=== PATIENT | male | born 1975 | race Caucasian/White ===

== ENCOUNTER 2024-11-13 03:03 | Inpatient (IN) | payer MEDICAID ==
[~2024-11-13] VITALS: Ht 185.4 cm; Wt 103.0 kg
[~2024-11-13 03:03] MED LIST: PANT40TA2 PO
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
[2024-11-13 03:56] LABS: Hematocrit 42.8 % (41.0-53.0); Hemoglobin 14.7 g/dL (13.5-17.5); Mean Corpuscular Hgb Conc. 34.4 g/dL (32.0-36.0); Mean Corpuscular Volume 84.4 fL (80.0-100.0); Platelet Count (auto) 312 10^3/uL (140-450); Red Blood Cells 5.07 10^6/uL (4.5-5.90); Red Cell Distribution Width 13.4 % (11.8-14.3); White Blood Cell 16.1 10^3/uL (4.4-10.8)
[2024-11-13 04:00] VITALS: PULSE 95; RESP 14; O2SAT 97
[2024-11-13 04:04] LABS: Basophils % (manual) 0 (0.0-2.0); Blast Cells 0; Eosinophils % (manual) 0 (0-7); Myelocytes % 0; Promyelocytes % 0; Reactive Lymphocytes 0
[2024-11-13] MEDS: KETOROLAC TROMETH 30 MG/ML 1ML VIAL IV ONE (04:07)
[2024-11-13 04:14] LABS: Alanine Aminotransferase 22 U/L (7-40); Albumin 4.1 g/dL (3.2-4.8); Alkaline Phosphatase 135 U/L (46-116); Anion Gap 8 (5-15); Aspartate Aminotransferase 16 U/L (13-40); BUN/Creatinine Ratio 22.8 (10.0-20.0); Bilirubin, Total 0.7 mg/dL (0.2-1.0); Blood Urea Nitrogen 23 mg/dL (9-23); Calcium 9.7 mg/dL (8.7-10.4); Carbon Dioxide 19 mmol/L (20-31); Chloride 108 mmol/L (98-107); Glucose 354 mg/dL (74-106); Potassium 3.8 mmol/L (3.5-5.1); Sodium 135 mmol/L (136-145); Total Protein 7.4 g/dL (5.7-8.2)
[2024-11-13 04:15] LABS: Lactic Acid w/Reflex 2.3 mmol/L (0.4-2.0)
[2024-11-13 04:23] LABS: Lipase 33 U/L (12-53)
[2024-11-13] MEDS: IOHEXOL 350 MG/ML 100ML IJ ONE (04:40)
[2024-11-13] MEDS: SODIUM CHLORIDE 0.9% 1,000 ML IV ONE (04:42)
--- NOTE | 2024-11-13 05:12 | DVH ---
EXAM: CT Abdomen and Pelvis With Intravenous Contrast CLINICAL INDICATION: Abdominal pain, constipation, difficulty urinating TECHNIQUE: Axial computed tomography images of the abdomen and pelvis with intravenous contrast. is CT exam was performed using one or more of the following dose reduction techniques: automated exp osure control, adjustment of the mA and/or kV according to patient size, and/or use of iterative sarmad nstruction technique. CONTRAST: RADIATION DOSE: CTDIvol = 17.78 mGy, DLP = 1069.5 mGy-cm COMPARISON: None FINDINGS: ARTIFACTS: Motion artifact. LUNG BASES: Unremarkable. No mass. No consolidation. ABDOMEN: LIVER: Hepatomegaly with fatty infiltration. GALLBLADDER AND BILE DUCTS: Unremarkable. No calcified stones. No ductal dilation. PANCREAS: Unremarkable. No mass. No ductal dilation. SPLEEN: Unremarkable. No splenomegaly. ADRENALS: Unremarkable. No mass. KIDNEYS AND URETERS: Unremarkable. No solid mass. No hydronephrosis. STOMACH AND BOWEL: Fecal retention in the colon consistent with constipation. No obstruction. No mucosal thickening. PELVIS: APPENDIX: No findings to suggest acute appendicitis. BLADDER: Unremarkable. No mass. REPRODUCTIVE: The prostate gland is enlarged measuring 6.7 cm in maximum dimension. ABDOMEN and PELVIS: INTRAPERITONEAL SPACE: Unremarkable. No free air. No significant fluid collection. BONES/JOINTS: No acute fracture. No dislocation. SOFT TISSUES: Left inguinal hernia. VASCULATURE: Indwelling IVC filter. No abdominal aortic aneurysm. LYMPH NODES: Unremarkable. No enlarged lymph nodes. OTHER FINDINGS: . . IMPRESSION: 1. The prostate gland is enlarged. Correlation with PSA values may be helpful if not previously per formed. 2. Hepatomegaly with fatty infiltration. 3. Fecal retention in the colon consistent with constipation. 4. Left inguinal hernia.
[2024-11-13 05:21] LABS: Band Neutrophils % (manual) 5; Lymphocytes % (manual) 8 (10.0-50.0); Metamyelocytes % 2; Monocytes % (manual) 2 (0-12)
[2024-11-13] MEDS ORDERED: DOCU-94 PO (05:24)
[2024-11-13] MEDS ORDERED: POLY335015 PO (05:24)
[2024-11-13 05:37] LABS: Platelet Estimate Adequate
[2024-11-13] MEDS: metroNIDAZOLE 500MG/100ML 100 ML IV ONE (06:36)
--- NOTE | 2024-11-13 07:29 | DVH ---
EXAM: XR Chest, 1 View CLINICAL INDICATION: r/o infection TECHNIQUE: Frontal view of the chest. COMPARISON: XY CHEST PORTABLE on DOS: 11/10/23, XY CHEST XRAY 1 VIEW on DOS: 11/09/23 FINDINGS: LUNGS AND PLEURAL SPACES: Pulmonary venous congestion. No consolidation. No pneumothorax. HEART: Unremarkable. No cardiomegaly. MEDIASTINUM: Unremarkable. Normal mediastinal contour. BONES/JOINTS: Unremarkable. No acute fracture. OTHER FINDINGS: . IMPRESSION: Pulmonary venous congestion.
[2024-11-13] MEDS: levoFLOXacin 500MG 100 ML IV ONE (09:04)
[2024-11-13] MEDS ORDERED: DEXTROSE (50%) 50ML SYRG IV PRN (10:45)
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
[2024-11-13] MEDS: POLYETHYLENE GLYCOL 17 GM PWDR PO SCH (11:20)
[2024-11-13] MEDS: ACCU-CHEK COMFORT CURVE STRIP VI SCH (11:30)
[2024-11-13 11:43] LABS: Erythrocyte Sedimentation Rate 55 mm/hr (0-20)
[2024-11-13 11:50] LABS: Urine Bacteria FEW /hpf (None Seen); Urine Blood TRACE /uL (Negative); Urine Clarity Turbid (Clear); Urine Color Light-Orange (Yellow); Urine Mucus FEW (None Seen); Urine Protein, UAD 1+ (Negative); Urine Squamous Epithelial Cell FEW /hpf (<5); Urine Urobilinogen 3 mg/dL (Negative); Urine WBC 161 /HPF (0-3); Urine pH 6.5 (5.0-9.0)
[2024-11-13 11:51] LABS: Urine Specific Gravity > 1.050 (1.001-1.035)
[2024-11-13] MEDS: InsuLIN REG 1unit/0.01ml Soln (100units/ml) SC SCH (12:30)
[2024-11-13 13:53] VITALS: PULSE 127; RESP 17; O2SAT 95
[2024-11-13] MEDS: metroNIDAZOLE 500MG/100ML 100 ML IV SCH (14:07)
[2024-11-13] MEDS: ACETAMINOPHEN 325 MG TAB PO PRN (15:20)
[2024-11-13] MEDS: FUROSEMIDE 40 MG/4 ML VIAL IV SCH (17:08)
[2024-11-13] MEDS: PANTOPRAZOLE 40 MG/10 ML VIAL INJ IV SCH (17:09)
[2024-11-13] MEDS: HYDROcodone-ACET 5/325MG TAB PO ONE (22:40)
[2024-11-13] MEDS: DOCUSATE SOD 100 MG CAP PO SCH (22:41)
[2024-11-13] MEDS: SENNA 8.6 MG TAB PO SCH (22:54)
[2024-11-14] VITALS (8 sets, daily range): BP systolic 87–117; BP diastolic 51–75; PULSE 83–103; RESP 16–21; TEMP 97.6–99.8; O2SAT 91–96
[2024-11-14] MEDS: HYDROcodone-ACET 5/325MG TAB PO PRN (05:40)
[2024-11-14 07:02] LABS: Basophils # (auto) 0.1 10 ^3/uL (0-0.2); Basophils % (auto) 0.6 % (0.0-2.0); Eosinophils # (auto) 0.1 10 ^3/uL (0-0.8); Eosinophils % (auto) 1.1 % (0.0-7.0); Hematocrit 40.2 % (41.0-53.0); Hemoglobin 13.9 g/dL (13.5-17.5); Lymphocytes % (auto) 8.9 % (10.0-50.0); Mean Corpuscular Hgb Conc. 34.5 g/dL (32.0-36.0); Monocytes # (auto) 0.8 10 ^3/uL (0-1.3); Monocytes % (auto) 7.5 % (0.0-12.0); Neutrophils # (auto) 8.8 10 ^3/uL (1.6-8.6); Neutrophils % (auto) 81.9 % (37.0-80.0); Platelet Count (auto) 262 10^3/uL (140-450); Red Blood Cells 4.78 10^6/uL (4.5-5.90); Red Cell Distribution Width 13.4 % (11.8-14.3); White Blood Cell 10.7 10^3/uL (4.4-10.8)
[2024-11-14 07:09] LABS: Alanine Aminotransferase 18 U/L (7-40); Albumin 3.6 g/dL (3.2-4.8); Anion Gap 8 (5-15); Aspartate Aminotransferase 15 U/L (13-40); BUN/Creatinine Ratio 19.3 (10.0-20.0); Blood Urea Nitrogen 17 mg/dL (9-23); Calcium 9.1 mg/dL (8.7-10.4); Carbon Dioxide 24 mmol/L (20-31); Chloride 103 mmol/L (98-107); Potassium 3.5 mmol/L (3.5-5.1); Total Protein 6.9 g/dL (5.7-8.2)
[2024-11-14 07:10] LABS: Bilirubin, Total 0.8 mg/dL (0.2-1.0)
[2024-11-14 07:11] LABS: Alkaline Phosphatase 119 U/L (46-116); Glucose 245 mg/dL (74-106); Sodium 135 mmol/L (136-145)
[2024-11-14 08:07] LABS: PSA Free 0.04 ng/mL; Prostate Specific Antigen 1.2 ng/mL (0.0-4.0)
[2024-11-14] MEDS: levoFLOXacin 500MG 100 ML IV SCH (10:06)
[2024-11-14] MEDS: ENOXAPARIN SOD 40 MG/0.4 ML SYRINGE SC SCH (10:07)
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
[2024-11-14] MEDS: MORPHINE SULFATE INJ 2 MG/ml SYRG IV PRN (21:31)
[2024-11-15] VITALS (8 sets, daily range): BP systolic 104–128; BP diastolic 68–83; PULSE 71–92; RESP 16–20; TEMP 97.6–99.3; O2SAT 94–99
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
[2024-11-16] VITALS (7 sets, daily range): BP systolic 101–123; BP diastolic 56–86; PULSE 80–102; RESP 16–22; TEMP 97.4–99.1; O2SAT 93–97
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
[2024-11-17] VITALS (7 sets, daily range): BP systolic 104–127; BP diastolic 66–83; PULSE 78–89; RESP 17–20; TEMP 98.1–98.8; O2SAT 94–98
[2024-11-17] MEDS: ONDANSETRON HCL 4 MG/2 ML VIAL IV PRN (06:18)
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
[2024-11-17] MEDS: MELATONIN 5 MG TAB PO ONE (22:30)
[2024-11-18] VITALS (8 sets, daily range): BP systolic 92–123; BP diastolic 58–87; PULSE 77–93; RESP 15–18; TEMP 97.7–98.5; O2SAT 94–97
--- NOTE | 2024-11-18 04:56 | DVH ---
CLINICAL INDICATION: 49 years old, Male; R/O OM VS ABSCESS. COMPARISON: None TECHNIQUE: Multiplanar, multisequence MRI of the left foot was performed without intravenous contrast . Contrast: None. INTERPRETATION: Bones: No evidence of acute fracture. There is T1 hypointensity in the medial cuneiform in the dorsa l aspect of the proximal 1st metatarsal bone, with corresponding edema. There susceptibility artifact in the medial hindfoot from the presence of metal. Joints: Midfoot arthrosis. No abnormal alignment. No significant joint effusion. Soft tissues: There is soft tissue edema in the dorsal midfoot at the level of the medial cuneiform a nd the base of the 1st metatarsal bone. No fluid collection. No high-grade tendon or ligament injury. Fatty infiltration of the regional flexor muscles in the foot. IMPRESSION: 1. Findings suspicious for osteomyelitis in the medial cuneiform and proximal 1st metatarsal of the l eft foot, with overlying soft tissue edema which may represent cellulitis. No fluid collection.
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
[2024-11-18] MEDS ORDERED: LINEZOLID 600MG/300ML 300 ML IV SCH (10:00)
[2024-11-18 12:14] LABS: Basophils # (auto) 0.1 10 ^3/uL (0-0.2); Basophils % (auto) 0.6 % (0.0-2.0); Eosinophils # (auto) 0.1 10 ^3/uL (0-0.8); Eosinophils % (auto) 0.9 % (0.0-7.0); Hemoglobin 14.1 g/dL (13.5-17.5); Lymphocytes # (auto) 2.1 10 ^3/uL (0.4-5.4); Lymphocytes % (auto) 21.1 % (10.0-50.0); Mean Corpuscular Hemoglobin 29.8 pg (28.0-32.0); Mean Corpuscular Hgb Conc. 34.3 g/dL (32.0-36.0); Mean Corpuscular Volume 86.7 fL (80.0-100.0); Monocytes # (auto) 0.8 10 ^3/uL (0-1.3); Monocytes % (auto) 8.2 % (0.0-12.0); Neutrophils % (auto) 69.2 % (37.0-80.0); Platelet Count (auto) 353 10^3/uL (140-450); Red Blood Cells 4.73 10^6/uL (4.5-5.90); Red Cell Distribution Width 13.6 % (11.8-14.3); White Blood Cell 10.1 10^3/uL (4.4-10.8)
[2024-11-18 12:15] LABS: Chloride 106 mmol/L (98-107); Potassium 4.1 mmol/L (3.5-5.1); Sodium 139 mmol/L (136-145)
[2024-11-18 12:16] LABS: Anion Gap 8 (5-15); Calcium 9.2 mg/dL (8.7-10.4); Carbon Dioxide 25 mmol/L (20-31)
[2024-11-18 12:21] LABS: BUN/Creatinine Ratio 18.5 (10.0-20.0); Blood Urea Nitrogen 15 mg/dL (9-23)
[2024-11-18 12:34] LABS: Glucose 194 mg/dL (74-106); INR 1.07 (0.9-1.15); Partial Thromboplastin Time 22.5 SEC (24.5-34.5); Prothrombin Time 11.3 sec (9.3-11.8)
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
[2024-11-18] MEDS: VANCOMYCIN HCL 1000 MG VL ONE (13:40)
--- NOTE | 2024-11-18 13:53 | DVHOP2 ---
Operative Report - 2 Report Details Date: 11/18/24 Preop Diagnosis: 1. Left foot osteomyelitis 2. Left foot abscess 3. Left foot cellulitis 4. Left foot traumatic laceration Postop Diagnosis: See preop Surgeon: Karly Montague MD Anesthesiologist: See anesthesia Anesthesia: Mac Consent: The patient was informed of the risks and benefits of the procedure. These include but are not limited to complications of anesthesia, postoperative infection, incomplete relief of symptoms, recurrence of symptoms, damage to blood vessels, nerves and tendons, deep venous thrombosis, pulmonary embolism and possible need for repeat surgery in the future. Complications: None Estimated Blood Loss: Minimal Fluids: See anesthesia Findings: Consistent with the diagnosis Indications for Surgery: Worsening left foot wound Name of Procedure Performed 1. Left foot I&D to bone (84423) 2. Left foot bone biopsy () Procedure Details Procedure Details: PRE-PROCEDURE INFORMATION: In the pre-op holding area, the extremity to be operated on was clearly marked and the patient verified correct laterality of the marking. The patient was transferred to the OR table and placed in a supine position. A timeout was performed in which identification of the correct patient, procedure, location, and materials was done. The left foot and leg were prepped and draped in normal sterile fashion. DESCRIPTION OF PROCEDURE: Attention was directed to the left where area of fluctuance was noted. An incision was made over this area and was deepened through blunt dissection. The incision was deepened to the level of abscess and bone. Care was taken to the dissection to avoid any neurovascular and tendinous structures. The incision was deepened to the bone, and the abscess appeared to be purulent fluid consistent with pus. The cortices of the bone was then removed with rongeur an all necrotic tissue. After the abscess was drained, the area was irrigated with 3 L normal saline using cysto tubing. Deep cultures were then obtained from the wound. The area was then inspected and any areas of tracking, especially along the tendons were also drained. A bone biopsy was then taken of the cuneiform which was deepened to the muscle belly and tendons. The bone was then sent to pathology to determine the extent of osteomyelitis. The wound was packed with Betadine-soaked gauze and we will need to be closed at a later date. POSTOPERATIVE INFORMATION: The patient tolerated the above noted procedure and anesthesia well and was transferred to the PACU with vital signs stable, and vascular status intact with capillary refill intact to all digits. Patient will return to the floor continue IV antibiotics. Deep cultures were taken bone biopsy was taken. Patient can weightbear as tolerated with a postoperative shoe Specimen: Left foot cuneiform Condition Good Disposition Still a Patient KARLY MONTAGUE DPLucy Nov 18, 2024 13:53
[2024-11-18] MEDS ORDERED: MIDAZOLAM HCL 2MG/2ML 2ml VIAL (1mg/ml) ONE (13:57)
[2024-11-18] MEDS ORDERED: GLYCOPYRROLATE 0.2 MG/ML 1ML VIAL ONE (13:58)
[2024-11-18] MEDS ORDERED: KETAMINE 50mg/ML 1ml syringe ONE (13:58)
[2024-11-18] MEDS ORDERED: ONDANSETRON HCL 4 MG/2 ML VIAL ONE (13:58)
[2024-11-18] MEDS ORDERED: LIDOCAINE 2% (LOCAL ANESTH.) PF 5ml SDV ONE (13:58)
[2024-11-18] MEDS ORDERED: PROPOFOL 10 MG/ML 20 ML IV ONE (13:58)
[2024-11-18] MEDS: BUPIVACAINE 0.5% P/F INJ 10 ML VIAL ONE (14:20)
[2024-11-18] MEDS ORDERED: HYDROmorphone HCL 2 MG/ML VL/or syr IV PRN (14:30)
[2024-11-18] MEDS: LINEZOLID 600MG/300ML 300 ML IV ONE (15:34)
[2024-11-18 15:36] LABS: Benzodiazephine Screen, Urine Neg (NEGATIVE)
[2024-11-18 15:37] LABS: Amphetamine Screen, Urine Neg (NEGATIVE); Barbiturate Scree,Urine Neg (NEGATIVE); Cannabinoid Screen, Urine Neg (NEGATIVE); Cocaine Screen, Urine Neg (NEGATIVE); Opiate Scree,Urine Neg (NEGATIVE); Phencyclidine Screen, Urine Neg (NEGATIVE)
[2024-11-18] MEDS: LINEZOLID 600MG/300ML 300 ML IV SCH (22:24)
[2024-11-18] MEDS: MELATONIN 5 MG TAB PO ONE ×2 (23:34)
[2024-11-19] VITALS (7 sets, daily range): BP systolic 110–121; BP diastolic 67–80; PULSE 60–97; RESP 15–20; TEMP 97.5–99.3; O2SAT 94–100
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
[2024-11-19] MEDS: LIDOCAINE 1% (LOCAL ANESTH.) PF 5ml SDV ID ONE (14:25)
--- NOTE | 2024-11-19 19:29 | DVH ---
CHEST RADIOGRAPH Indication: PICC LINE PLACEMENT. TO BE ORDERED BY PICC LINE NURSE Technique: Single frontal view of the chest was obtained COMPARISON: XY CHEST XRAY 1 VIEW on DOS: 11/13/24 FINDINGS: Lines and Tubes: Interval insertion of left-sided PICC noted with its tip projecting over SVC. Lungs: Clear Pleura: No effusion. No pneumothorax. Cardiomediastinal contours: Unremarkable Bones: Unremarkable IMPRESSION: No abnormality demonstrated. Left-sided PICC in satisfactory position.
[2024-11-19] MEDS: SODIUM CHLOR 0.9% PF (SALINE LOCK) 10ML VIAL/SYR IV SCH (21:15)
[2024-11-19] MEDS: MELATONIN 5 MG TAB PO SCH (21:16)
[2024-11-20] VITALS (9 sets, daily range): BP systolic 108–124; BP diastolic 58–92; PULSE 75–95; RESP 16–20; TEMP 98–98.9; O2SAT 94–98
[2024-11-20 05:39] LABS: Urine Bacteria None Seen /hpf (None Seen)
[2024-11-20 05:48] LABS: Basophils # (auto) 0.1 10 ^3/uL (0-0.2); Basophils % (auto) 0.9 % (0.0-2.0); Eosinophils # (auto) 0.2 10 ^3/uL (0-0.8); Eosinophils % (auto) 1.9 % (0.0-7.0); Hematocrit 40.6 % (41.0-53.0); Hemoglobin 13.7 g/dL (13.5-17.5); Lymphocytes # (auto) 2.1 10 ^3/uL (0.4-5.4); Lymphocytes % (auto) 22.7 % (10.0-50.0); Mean Corpuscular Hemoglobin 28.7 pg (28.0-32.0); Mean Corpuscular Hgb Conc. 33.6 g/dL (32.0-36.0); Mean Corpuscular Volume 85.4 fL (80.0-100.0); Monocytes # (auto) 0.7 10 ^3/uL (0-1.3); Monocytes % (auto) 7.4 % (0.0-12.0); Neutrophils # (auto) 6.1 10 ^3/uL (1.6-8.6); Neutrophils % (auto) 67.1 % (37.0-80.0); Nucleated Red Blood Cells % 0.1 %; Platelet Count (auto) 380 10^3/uL (140-450); Red Blood Cells 4.76 10^6/uL (4.5-5.90); Red Cell Distribution Width 13.6 % (11.8-14.3); White Blood Cell 9.1 10^3/uL (4.4-10.8)
[2024-11-20 06:01] LABS: Chloride 106 mmol/L (98-107); Potassium 4.4 mmol/L (3.5-5.1); Sodium 137 mmol/L (136-145)
[2024-11-20 06:02] LABS: Anion Gap 6 (5-15); Calcium 9.3 mg/dL (8.7-10.4); Carbon Dioxide 25 mmol/L (20-31)
[2024-11-20 06:03] LABS: Urine Blood TRACE /uL (Negative); Urine Clarity Clear (Clear); Urine Color Light-Yellow (Yellow); Urine Protein, UAD Negative (Negative); Urine Squamous Epithelial Cell FEW /hpf (<5); Urine Urobilinogen Normal (Negative); Urine WBC 122 /HPF (0-3)
[2024-11-20 06:07] LABS: BUN/Creatinine Ratio 18.3 (10.0-20.0); Blood Urea Nitrogen 17 mg/dL (9-23)
[2024-11-20 06:12] LABS: INR 1.02 (0.9-1.15); Partial Thromboplastin Time 27.9 SEC (24.5-34.5); Prothrombin Time 10.8 sec (9.3-11.8)
[2024-11-20 06:15] LABS: Glucose 232 mg/dL (74-106)
--- NOTE | 2024-11-20 07:10 | DVH ---
EXAM: XR Chest, 1 View CLINICAL INDICATION: PROCEDURE TECHNIQUE: Frontal view of the chest. COMPARISON: XY CHEST PORTABLE on DOS: 11/19/24, XY CHEST XRAY 1 VIEW on DOS: 11/13/24, XY CHEST PORTAB LE on DOS: 11/10/23, XY CHEST XRAY 1 VIEW on DOS: 11/09/23 FINDINGS: LUNGS AND PLEURAL SPACES: Unremarkable. No consolidation. No pneumothorax. HEART: Unremarkable. No cardiomegaly. MEDIASTINUM: Unremarkable. Normal mediastinal contour. BONES/JOINTS: Unremarkable. No acute fracture. OTHER FINDINGS: . None. IMPRESSION: No acute cardiopulmonary process.
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
--- NOTE | 2024-11-20 10:45 | DVHOP2 ---
Operative Report - 2 Report Details Date: 11/20/24 Preop Diagnosis: 1. Left foot osteomyelitis 2. Left foot abscess 3. Left foot cellulitis 4. Left foot traumatic laceration Postop Diagnosis: See preop Surgeon: Karly Montague MD Anesthesiologist: See anesthesia Anesthesia: Mac Consent: The patient was informed of the risks and benefits of the procedure. These include but are not limited to complications of anesthesia, postoperative infection, incomplete relief of symptoms, recurrence of symptoms, damage to blood vessels, nerves and tendons, deep venous thrombosis, pulmonary embolism and possible need for repeat surgery in the future. Complications: None Estimated Blood Loss: Minimal Fluids: See anesthesia Findings: Consistent with the diagnosis Indications for Surgery: Worsening left foot ulcer Name of Procedure Performed 1. Left foot I&D to bone (05176) 2. Left foot delayed closure (98003) Procedure Details Procedure Details: PRE-PROCEDURE INFORMATION: In the pre-op holding area, the extremity to be operated on was clearly marked and the patient verified correct laterality of the marking. The patient was transferred to the OR table and placed in a supine position. A timeout was performed in which identification of the correct patient, procedure, location, and materials was done. The left foot and leg were prepped and draped in normal sterile fashion. DESCRIPTION OF PROCEDURE: Attention was directed to the left where area of fluctuance was noted. An incision was made over this area and was deepened through blunt dissection. The incision was deepened to the level of abscess and bone. Care was taken to the dissection to avoid any neurovascular and tendinous structures. The incision was deepened to the bone, and the abscess appeared to be purulent fluid consistent with pus. The cortices of the bone was then removed with rongeur an all necrotic tissue. After the abscess was drained, the area was irrigated with 3 L normal saline using cysto tubing. A delayed closure was then performed using 2-0 nylon and vancomycin powder after was deemed appropriate with no longer concern for infection. POSTOPERATIVE INFORMATION: The patient tolerated the above noted procedure and anesthesia well and was transferred to the PACU with vital signs stable, and vascular status intact with capillary refill intact to all digits. Patient will return to the floor continue IV antibiotics. Depending on bone pathology patient can be discharged on p.o. antibiotic, if not 6 weeks of IV antibiotics. Patient can weightbear as tolerated in a postoperative shoe. Patient can follow up with me in 1 week. Condition Good Disposition Still a Patient KARLY MONTAGUE DPM Nov 20, 2024 10:45
[2024-11-20] MEDS ORDERED: fentaNYL CITRATE 100 MCG/2 ML VL ONE (11:12)
[2024-11-20] MEDS ORDERED: PROPOFOL 10 MG/ML 20 ML IV ONE (11:12)
[2024-11-20] MEDS ORDERED: MIDAZOLAM HCL 2MG/2ML 2ml VIAL (1mg/ml) ONE (11:12)
[2024-11-20] MEDS ORDERED: LIDOCAINE 2% (LOCAL ANESTH.) PF 5ml SDV ONE (11:12)
[2024-11-20] MEDS: BUPIVACAINE 0.5% P/F INJ 10 ML VIAL ONE (11:21)
[2024-11-20] MEDS ORDERED: ePHEDrine SULFATE 50 MG/ML AMP IV PRN (11:45)
[2024-11-20] MEDS ORDERED: ONDANSETRON HCL 4 MG/2 ML VIAL IV ONE (11:45)
[2024-11-20] MEDS ORDERED: NALOXONE HCL 0.4 MG/ML VIAL IV PRN (11:45)
[2024-11-20] MEDS ORDERED: HYDROmorphone HCL 2 MG/ML VL/or syr IV PRN (11:45)
[2024-11-20] MEDS ORDERED: fentaNYL CITRATE 100 MCG/2 ML VL IV PRN (11:45)
[2024-11-21 01:00] VITALS: BP 117/78; PULSE 93; RESP 18; TEMP 98.2; O2SAT 96
[2024-11-21 08:00] VITALS: PULSE 85; RESP 20; O2SAT 96
[2024-11-21 09:00] VITALS: BP 115/60; PULSE 85; RESP 20; TEMP 98; O2SAT 96
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
[2024-11-21 13:00] VITALS: BP 114/78; PULSE 86; RESP 20; TEMP 98.6; O2SAT 96
[2024-11-21] MEDS ORDERED: VANCOMYCIN PER PHARMACY 0 MG IV SCH (13:30)
[2024-11-21] MEDS: VANCOMYCIN 1.75GM/350ML 350 ML IV ONE (13:56)
[2024-11-21] MEDS: cefTRIAXone 2GM/50ML D5W 50 ML IV SCH (16:26)
[2024-11-21 17:00] VITALS: BP 112/62; PULSE 85; RESP 20; TEMP 98.2; O2SAT 98
[2024-11-21 20:00] VITALS: PULSE 85; RESP 20; O2SAT 96
[2024-11-21] MEDS: VANCOMYCIN 1.25GM/250ML 250 ML IV SCH (21:35)
[2024-11-22 01:00] VITALS: BP 100/55; PULSE 87; RESP 19; TEMP 98.1; O2SAT 96
[2024-11-22 05:00] VITALS: BP 137/93; PULSE 79; RESP 19; TEMP 98.3; O2SAT 97
[2024-11-22 08:00] VITALS: PULSE 81; RESP 16; O2SAT 96
[2024-11-22 09:00] VITALS: BP 104/72; PULSE 81; RESP 16; TEMP 97.8; O2SAT 96
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
[2024-11-22] MEDS ORDERED: HYDR-4902 PO (09:36)
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
[2024-11-22] MEDS ORDERED: METF-372 PO (10:05)
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
== END 2024-11-22 14:50 | disposition home health service (06) | DRG 720 ==
LOC: ER 03:03 → OVERFLOW 10:41 → EAST 23:46
PROVIDERS: ADMIT Family Medicine; ATTEND Family Medicine
PROC: 0Y9N0ZZ Drainage of Left Foot, Open Approach (ICD-10-PCS; 2024-11-18)
PROC: 0QBP0ZX Excision of Left Metatarsal, Open Approach, Diagnostic (ICD-10-PCS; 2024-11-18)
PROC: 02HV33Z Insertion of Infusion Device into Superior Vena Cava, Percutaneous Approach (ICD-10-PCS; 2024-11-19)
PROC: B548ZZA Ultrasonography of Superior Vena Cava, Guidance (ICD-10-PCS; 2024-11-19)
PROC: 0Y9N0ZZ Drainage of Left Foot, Open Approach (ICD-10-PCS; principal; 2024-11-20 11:12)
DX: A41.9 Sepsis, unspecified organism (principal); E87.20 Acidosis, unspecified; E11.649 Type 2 diabetes mellitus with hypoglycemia without coma; J81.1 Chronic pulmonary edema; R16.0 Hepatomegaly, not elsewhere classified; M86.172 Other acute osteomyelitis, left ankle and foot; E11.621 Type 2 diabetes mellitus with foot ulcer; E11.65 Type 2 diabetes mellitus with hyperglycemia; N39.0 Urinary tract infection, site not specified; E66.9 Obesity, unspecified; K40.90 Unilateral inguinal hernia, without obstruction or gangrene, not specified as recurrent; N40.0 Benign prostatic hyperplasia without lower urinary tract symptoms; F15.10 Other stimulant abuse, uncomplicated; E78.5 Hyperlipidemia, unspecified; I10 Essential (primary) hypertension; K21.9 Gastro-esophageal reflux disease without esophagitis; Z68.30 Body mass index [BMI] 30.0-30.9, adult; F17.200 Nicotine dependence, unspecified, uncomplicated; L03.116 Cellulitis of left lower limb; L02.612 Cutaneous abscess of left foot; S91.312A Laceration without foreign body, left foot, initial encounter; F10.10 Alcohol abuse, uncomplicated; E11.69 Type 2 diabetes mellitus with other specified complication; L97.529 Non-pressure chronic ulcer of other part of left foot with unspecified severity; K76.0 Fatty (change of) liver, not elsewhere classified; Z95.828 Presence of other vascular implants and grafts; Z86.718 Personal history of other venous thrombosis and embolism; Z89.511 Acquired absence of right leg below knee; Z83.3 Family history of diabetes mellitus; Z87.81 Personal history of (healed) traumatic fracture; Z79.899 Other long term (current) drug therapy; X58.XXXA Exposure to other specified factors, initial encounter; Y93.9 Activity, unspecified; Y92.89 Other specified places as the place of occurrence of the external cause; Y99.8 Other external cause status
CPT/HCPCS: 36415; 36569; 71045; 73718; 74177; 76937; 80048; 80053; 80202; 80307; 81001; 82565; 82962; 83036; 83605; 83690; 83880; 84154; 85007; 85025; 85027; 85610; 85652; 85730; 86141; 86850; 86900; 86901; 87040; 87070; 87075; 87077; 87081; 87086; 87186; 87205; G0378; J1815; J1885; J1956; J2003; J2250; J2405; J2470; J2704; J3490